=== PATIENT | female | born 1980 | race Hispanic/Latino ===

== ENCOUNTER 2024-03-31 12:32 | Emergency (ER) | payer SELFPAY ==
--- OUTSIDE RECORDS SUMMARY | 2024-03-31 12:35 | XMS REPORT | Continuity of Care Document ---
Author Name Unknown Address [address] [place] [address] Organization [facility] thconnect Address 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 Name Role Phone Teresita Abreu Primary Care Physicia n Jackie Garcia Attending Clinician [phone] Doctor Unassigned, [place] Attending Clinician U navailable Provider, [facility] Attending Clinician Un available JACKIE BERMEO Attending Clinician Unavailable SANTA KEY Attending Clinician Unavailable Lab, [facility] Attending Clinician Unavailab Emelyn Echvearria Attending Clinician [phone] EMELYN DURÁN Attending Clinician Unavailable Payers Payer Name Policy Type Policy Number Effective Date Expirati on Date Source Problems Condition Name Condition Details Condition Category Status Onset Date Resolution Date Last Treatment Date Treating Clinician Comments Source BV (bacterial vaginosis) BV (bacterial vaginosis) Disease Active 12-22 00:00: 00 [facility] UTI symptoms UTI symptoms Disease Active 06-09 00:00: 00 [facility] Contracept melva management Contracept melva management Disease Active 06-09 00:00: 00 Overview: Isatu gallegos of this note might be different from the original. 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 Utility [facility] Screening for STD (sexually transmitte d disease) Screening for STD (sexually transmitte d disease) Disease Active 10-15 00:00: 00 [facility] Allergies, Adverse Reactions, Alerts Allergy Name Allergy Type Status Severity Reaction(s) Onset Date Inactive Date Treating Clinician Comments Source NO KNOWN ALLERGIE S Drug Class Active [facility] Social History Social Habit Start Date Stop Date Quantity Comments Source [facility] of Social function 2021-01-15 00:00:00 2021-01-15 00:00:00 [facility] Exposure to SARS-CoV-2 (event) 2020-11-30 00:00:00 2020-12-30 13:50:00 Not sure [facility] Alcohol intake 2020-12-30 00:00:00 2020-12-30 00:00:00 Current non-drinker of alcohol (finding) [facility] Tobacco use and exposure 2013-08-23 00:00:00 2013-08-23 00:00:00 Smokeless tobacco non-user [facility] Sex Assigned At 1980 00:00:00 1980 00:00:00 [facility] Smoking Status Start Date Stop Date Source Never smoked tobacco [facility] Medications Ordered Medication Name Filled Medication Name Start Date Stop Date Current Medication? Ordering Clinician Indication Dosage Frequency Signature (SIG) Comments Components Source metroNIDAZO LE (FLAGYL) 500 mg tablet 01-01 00:00: 00 01-09 04:59 :00 No [id number] 500mg Take 1 tablet by mouth 2 (two) times daily for 7 days. Avoid alcohol. [facility] metroNIDAZO LE 500 mg tablet 02-07 00:00: 00 Yes [id number] 500mg Take 1 tablet by mouth 2 (two) times daily. [facility] metroNIDAZO LE 500 mg tablet 12-22 00:00: 00 Yes [id number] 500mg Take 1 tablet by mouth 2 (two) times daily. [facility] No known medications No Un stoney [facility] Immunizations Ordered Immunization Name Filled Immunization Name Date Status Comments Source SARS-COV-2 COVID-19 PFIZER VACCINE 2020-12-19 00:00:00 Completed [facility] SARS-COV-2 COVID-19 PFIZER VACCINE 2020-12-19 00:00:00 Completed [facility] SARS-COV-2 COVID-19 PFIZER VACCINE 2020-11-28 00:00:00 Completed [facility] SARS-COV-2 COVID-19 PFIZER VACCINE 2020-11-28 00:00:00 Completed [facility] Rubella 2012-02-24 00:00:00 Completed [facility] Rubella 2012-02-24 00:00:00 Completed [facility] Rubella 2012-02-24 00:00:00 Completed [facility] Td 2007-08-23 00:00:00 Completed [facility] Td 2007-08-23 00:00:00 Completed [facility] Td 2007-08-23 00:00:00 Completed [facility] Rubella Unknown Completed [facility] TD, NOS Unknown Completed [facility] SARS-COV-2 COVID-19 PFIZER VACCINE Unknown Completed [facility] SARS-COV-2 COVID-19 PFIZER VACCINE Unknown Completed [facility] Vital Signs Vital Name Observation Time Observation Value Comments S ource Systolic blood pressure 2020-12-30 18:51:00 109 mm[Hg] [facility] Diastolic blood pressure 2020-12-30 18:51:00 67 mm[Hg] [facility] Heart rate 2020-12-30 18:51:00 80 /min [facility] Body temperature 2020-12-30 18:51:00 36.89 Patricia [facility] Respiratory rate 2020-12-30 18:51:00 18 /min [facility] Body height 2020-12-30 18:51:00 157.5 cm [facility] Body weight 2020-12-30 18:51:00 67.132 kg [facility] BMI 2020-12-30 18:51:00 27.07 kg/m2 [facility] Oxygen saturation in Arterial blood by Pulse oximetry 2020-12-30 18:51:00 99 /min [facility] Procedures Procedure Date / Time Performed Performing Clinicia n Source GC & CHLAMYDIA AMPLIFIED ASSAY 2020-12-30 19:38:00 Jackie Bermeo [facility] GALV ONLY - VAGINAL PATHOGENS BY NUCLEIC ACID TESTING 2020-12-30 19:38:00 Jackie Bermeo [facility] POCT URINALYSIS 2020-12-30 19:05:00 [facility] 2020-12-30 19:05:00 Jackie Bermeo [facility] Encounters Start Date/Time End Date/Time Encounter Type Admission Type Attending [facility] Care Department Encounter ID Source 2024-01-31 08:25:19 2024-01-31 08:25:19 Outpatient SFA SFA [id number] Raymundo Arechiga 2023-11-29 08:31:25 2023-11-29 08:31:25 Outpatient SFA SFA [id number] Raymundo Arechiga 2023-10-27 16:46:04 2023-10-27 16:46:04 Outpatient SFA SFA [id number] Raymundo Arechiga 2023-09-05 14:37:42 2023-09-05 14:37:42 Outpatient SFA SFA [id number] Raymundo Arechiga 2023-07-14 08:51:51 2023-07-14 08:51:51 Outpatient SFA SFA [id number] Raymundo Arechiga 2023-07-05 13:05:56 2023-07-05 13:05:56 Outpatient SFA SFA [id number] Raymundo Arechiga 2023-06-13 08:34:51 2023-06-13 08:34:51 Outpatient SFA SFA [id number] Raymundo Arechiga 2023-03-08 08:11:56 2023-03-08 08:11:56 Outpatient SFA SFA [id number] Raymundo Arechiga 2023-02-22 14:34:14 2023-02-22 14:34:14 Outpatient SFA SFA [id number] Raymundo Arechiga 2023-02-15 08:06:46 2023-02-15 08:06:46 Outpatient [facility] [id number] Raymundo Arechiga 2023-02-01 08:21:49 2023-02-01 08:21:49 Outpatient [facility] [id number] Raymundo Arechiga 2023-01-25 14:05:16 2023-01-25 14:05:16 Outpatient [facility] [id number] Raymundo [place] 2023-01-18 08:09:26 2023-01-18 08:09:26 Outpatient [facility] [id number] Raymundo Brooks [place] 2021-01-14 00:00:00 2021-01-14 00:00:00 Telephone Jackie Bermeo [facility] Office [facility] [id number] .[id number] [facility] 2021-01-01 00:00:00 2021-01-01 00:00:00 Patient Secure Msg Doctor Unassigned, [place] [facility] [id number] [facility] 2020-12-30 13:45:07 2020-12-30 14:44:33 Urgent Care Provider, [facility] Jackie Bermeo [facility] Office [address] One .[id number] [facility] 2020-12-30 14:20:00 2020-12-30 14:20:00 Outpatient JACKIE ESPINO [facility] [id number] [facility] 2020-12-19 16:15:00 2020-12-19 15:25:21 Outpatient SATNA BAXTER [facility] [id number] [facility] 2020-11-28 16:25:00 2020-11-28 16:25:00 Outpatient R [place] [facility] [id number] [facility] 2020-03-26 07:20:00 2020-03-26 07:40:00 Laboratory Only Lab, [facility] Emelyn [facility] [id number] [facility] 2020-03-26 07:20:00 2020-03-26 07:20:00 Outpatient EMELYN POTTER [facility] [id number] [facility] Results Test Description Test Time Test Comments Results Result Co mments Source VAGINAL PATHOGENS DNA [id number] 15:17:23* Test Item Value Reference Range Interpretation Comme nts SHAUNA SPECIES (test code = 29944) NEGATIVE NEGATIVE G. VAGINALIS (test code = ) POSITIVE NEGATIVE A T. VAGINALIS (test code = ) NEGATIVE NEGATIVE Note: The BD Cambiatta irm VPIII Microbial Identification Testis a DNA probe test intended for use in the detectionand identification of Shauna species, Gardnerellavaginalis and Trichomonas vaginalis nucleic acid. UNLESS OTHERWISE INDICATED, ALL TESTING PERFORMED AT [facility] [address] [place] [address] TRAY SETTER: FAN CARUSO M.D. CLIA NUMBER [id number] [facility] [place]. [id number] GALV ONLY - VAGINAL PATHOGENS BY NUCLEIC ACID [id number] 00:05:39* Test Item Value Reference Range Interpretation Comme nts Trichomonas vaginalis (test code = 3980277999) Negative Negative Shauna species (test code = 7057682634) Negative Negative Shauna glabrata (test code = 62483-2) Negative Negative Bacterial Vaginosis (test code = 78434-7) Positive Negative A HERNÁN (test code = HERNÁN) Reliable results a re dependent on adequate specimen collection. This test detects Trichomonas vaginalis, Shauna glabrata, and other Shauna species (C. albicans, C. parapsilosis, C. dubliniensis, and C. tropicalis). ?The assay does not differentiate among organisms in the Shauna species group. The Bacterial Vaginosis result is determined based on relative amounts of the following target organisms: Lactobacillus (L. gasseri, L. crispatus, and L. jensenii), Gardnerella vaginalis, and Atopobium vaginae. ?A single qualitative result is generated. ?This assay does not report individual organisms. A positive result obtained from a patient after therapeutic treatment cannot be interpreted as indicating the presence of viable organisms. ?For patients on whom a false positive result may have adverse psychosocial impact, retesting is advised. Indeterminate: Unable to generate a valid test result on this specimen. ?Please submit a new specimen for repeat testing if clinically indicated. This testing has not been validated for medico-legal purposes (sexual abuse in niharika-pubertal and pre-pubertal children, sexual assault, and legal cases). Results from this testing should be interpreted in conjunction with other laboratory and clinical data available to the clinician. Lab Interpretation (test code = 28798-2) [facility] CHLAMYDIA AMPLIFIED [id number] 19:14:46* Test Item Value Reference Range Interpretation Comme nts C. trachomatis Nucleic Acid (test code = 15272-6) Negative Negative N. gonorrhoeae Nucleic Acid (test code = 73803-2) Negative Negative HERNÁN (test code = HERNÁN) Reliable results a re dependent on adequate specimen collection. ? A positive result obtained from a patient after therapeutic treatment cannot be interpreted as indicating the presence of viable organisms. ?For patients on whom a false positive result may have adverse psychosocial impact, retesting is advised. Indeterminate: Unable to generate a valid test result on this specimen. ?Please submit a new specimen for repeat testing if clinically indicated. Chlamydia trachomatis/Neisseria gonorrhoeae nucleic acid amplification testing (NAAT) has not been validated for medico-legal specimens (sexual abuse in niharika-pubertal and pre-pubertal children, sexual assault, and legal cases). ?Culture for Chlamydia trachomatis and/or Neisseria gonorrhoeae from clinically appropriate sites is the method of choice in these cases. ? Results from this testing should be interpreted in conjunction with other laboratory and clinical data available to the clinician. Lab Interpretation (test code = 28042-2) [facility] SPECIFIC [id number] 19:11:00* Test Item Value Reference Range Interpretation Comme nts POCT U SP GRAV (test code = 3255) 1.015 mg/dl 1.005-1.025 POCT PH U (test code = 3254) 7 mg/dl 5-8 POCT U LEUK EST (test code = 3263) Negative Negative - Negative POCT U NIT (test code = 3262) Negative Negative - Negati ve POCT U PROT (test code = 3259) Negative Negative - Negative POCT U GLU (test code = 3256) Negative Negative - Negati ve POCT U KETONE (test code = 3258) Negative Negative - Negative POCT U UROBILI (test code = 3260) Normal 0.2-1 POCT U BILI (test code = 3261) Negative Negative - Negative POCT U BLD (test code = 3257) 250 Beto/uL Negative - Negati ve POCT U COLOR (test code = 3266) yellow POCT U APPEAR (test code = 3267) clear Lab Interpretation (test cod e = 01592-3) [facility]normal [facility] [id number] 19:11:00* Test Item Value Reference Range Interpretation Comme nts POCT PREG (test code = 1605) Negative On board controls acceptable with C Line (test code = 3574) Yes POCT PREG LOT # (test code = 3575) [id number] POCT PREG TEST DATE ( test code = 3576) 06/10/2022 Lab Interpretation (test cod e = 18597-7) Normal [facility]
[2024-03-31] MEDS ORDERED: CEFTRIAXONE 500 MG/VIAL ONE (12:53)
[2024-03-31] MEDS ORDERED: DOXYCYCLINE 100 MG CAP PO ONE (12:54)
[2024-03-31] MEDS ORDERED: metroNIDAZOLE 500 MG TABLET ONE (12:54)
[2024-03-31] MEDS ORDERED: ONDANSETRON 4 MG (ODT) TAB ONE (12:54)
[2024-03-31 13:50] LABS: Specific Gravity > 1.030 (1.005-1.030)
[2024-03-31 13:57] LABS: Specific Gravity > 1.030 (1.005-1.030); Urine Bacteria <20 /HPF (<20); Urine Bilirubin NEGATIVE (Negative); Urine Blood 1+ (Negative); Urine Clarity Extremely Turbid (Clear); Urine Color Yellow (Yellow); Urine Culture Reflex Order REFLEXED; Urine Glucose NEGATIVE (Negative); Urine Ketones NEGATIVE (Negative); Urine Microscopic Reflex YN ORDER UMIC; Urine Mucus 1+ /HPF (None Seen); Urine Nitrite NEGATIVE (Negative); Urine Protein TRACE (Negative); Urine RBC 21-50 /HPF (None Seen); Urine Urobilinogen Normal (Normal); Urine pH 6.5 (5.0-7.0)
--- NOTE | 2024-03-31 14:01 | EDPHYS ---
Physician Documentation [facility] Name: Aye Shafer Age: 43 yrs Sex: Female : 1980 Arrival Date: 03/31/2024 Time: 12:32 Bed 20 Private MD: ED Physician Xiomara Sanderson HPI: 03/31 12:42 This 43 yrs old Female presents to ER via Ambulatory with complaints of Low jh7 Back Pain. 12:42 Patient reports that she had unprotected sex 1 week ago. Reports foul-smelling thick jh7 vaginal discharge for the past 2 days with lower back aching. Denies fever, dysuria, or any other symptoms. No PMH.. ESTIMATOR BINDING: 14:18 unknown kj2 Historical: - Allergies: 13:16 Aspirin; kj2 13:16 Demerol; kj2 13:16 Ibuprofen; kj2 13:16 Unable to obtain; kj2 13:16 Morphine; kj2 13:16 Codeine; kj2 13:16 Latex, Natural Rubber; kj2 13:16 Sulfa (Sulfonamide Antibiotics); kj2 13:16 Iodine; kj2 13:16 NKA; kj2 13:16 NKDA; kj2 13:16 Oxycodone; kj2 13:16 Tetanus Vaccines \T\ Toxoid; kj2 13:16 PENICILLINS; kj2 - Immunization history:: Adult Immunizations up to date. - Infectious Disease History:: Denies. - Social history:: Smoking status: Patient denies any tobacco usage or history of. - Code Status:: Full code. ROS: 12:42 Constitutional: Per HPI jh7 Exam: 12:42 Constitutional: This is a well developed, well nourished patient who is awake, alert, jh7 and in no acute distress. Head/Face: Normocephalic, atraumatic. Neck: Trachea midline, no thyromegaly or masses palpated, and no cervical lymphadenopathy. Supple, full range of motion without nuchal rigidity, or vertebral point tenderness. No Meningismus. Cardiovascular: Regular rate and rhythm with a normal S1 and S2. No gallops, murmurs, or rubs. Normal PMI, no JVD. No pulse deficits. Respiratory: Lungs have equal breath sounds bilaterally, clear to auscultation and percussion. No rales, rhonchi or wheezes noted. No increased work of breathing, no retractions or nasal flaring. Abdomen/GI: Soft, non-tender, with normal bowel sounds. No distension or tympany. No guarding or rebound. No evidence of tenderness throughout. Back: No spinal tenderness. No costovertebral tenderness. Full range of motion. Skin: Warm, dry with normal turgor. Normal color with no rashes, no lesions, and no evidence of cellulitis. MS/ Extremity: Pulses equal, no cyanosis. Neurovascular intact. Full, normal range of motion. Neuro: Awake and alert, GCS 15, oriented to person, place, time, and situation. Motor strength 5/5 in all extremities. Sensory grossly intact. Normal gait. Vital Signs: 13:08 BP 120 / 80; Pulse 81; Resp 18; Pulse Ox 100% ; kj2 14:18 BP 102 / 61; Pulse 79; Resp 20; Temp 98; Pulse Ox 99% on R/A; kj2 MDM: 12:38 Patient medically screened. [facility] 14:03 Differential diagnosis: Bacterial vaginosis, vaginal yeast infection, PID, STI, UTI. [facility] Data reviewed: vital signs, nurses notes. I considered the following discharge prescriptions or medication management in the emergency department Medications were administered in the Emergency Department. See MAR. Care significantly affected by the following Social Determinants of Health: Poor access to healthcare and/or lack of insurance. Counseling: I had a detailed discussion with the patient and/or guardian regarding the historical points, exam findings, and any diagnostic results supporting the discharge/admit diagnosis, to return to the emergency department if symptoms worsen or persist or if there are any questions or concerns that arise at home. 03/31 12:47 Order name: Urinalysis w/ reflexes; Complete Time: 13:59 [facility] 03/31 12:47 Order name: Test, Urine; Complete Time: 13:53 [facility] 03/31 14:01 Order name: Urine Culture EDMS Administered Medications: 13:07 Drug: Rocephin (cefTRIAXone) IM 500 mg IM once Route: IM; Site: right gluteus; kj2 14:22 Follow up: Response: No adverse reaction kj2 13:07 Drug: Doxycycline PO 100 mg PO once Route: PO; kj2 14:22 Follow up: Response: No adverse reaction kj2 13:07 Drug: Ondansetron Oral Disintegrating Tablet Oral Disintegrating Tablet 4 mg PO once kj2 Route: PO; 14:22 Follow up: Response: No adverse reaction kj2 13:07 Drug: metroNIDAZOLE PO 500 mg PO once Route: PO; kj2 14:22 Follow up: Response: No adverse reaction kj2 Disposition: 19:28 I reviewed the patient's care provided by the Advanced Practice Provider and agree with sd2 the diagnosis and treatment plan. Disposition Summary: 03/31/24 14:01 Discharge Ordered Notes: Location: Home [facility] Problem: new [facility] Symptoms: are unchanged [facility] Condition: Stable [facility] Diagnosis - Vaginitis, vulvitis and vulvovaginitis in diseases classified elsewhere [facility] - Encounter for screening for infections with a predominantly sexual mode of [facility] transmission Followup: [facility] - With: Private Physician - When: 2 - 3 days - Reason: Recheck today's complaints Discharge Instructions: - Discharge Summary Sheet [facility] - Bacterial Vaginosis [facility] - Preventing Sexually Transmitted Infections, Adult [facility] Forms: - Medication Reconciliation Form [facility] - Antibiotic Education [facility] - Patient Portal Instructions [facility] - Leadership Thank You Letter [facility] Prescriptions: - ondansetron 4 mg Oral Tablet,disintegrating - take 1 tablet ORAL route every 4-6 hours As needed; 20 tablet; Refills: 0, [facility] Product Selection Permitted - Diflucan 150 mg Oral Tablet - take 1 tablet ORAL route one time for 1 day; 1 tablet; Refills: 0, Product [facility] Selection Permitted - Flagyl 500 mg Oral Tablet - take 1 tablet ORAL route every 12 hours for 7 days; 14 tablet; Refills: 0, [facility] Product Selection Permitted - Doxycycline Hyclate 100 mg Oral Tablet - take 1 tablet ORAL route every 12 hours; 20 tablet; Refills: 0, Product [facility] Selection Permitted Signatures: Dispatcher [employer] Lyssa Ramirez RN RN ll1 Daysi Gonzalez, ASSEMBLY PERSON ASSEMBLY PERSON 7 Xiomara Sanderson MD MD sd2 Karla Mai RN RN kj2 Corrections: (The following items were deleted from the chart) 13:20 13:16 Allergies: No Known Allergies; kj2 kj2
--- NOTE | 2024-03-31 14:01 | ER ---
Nurse's Notes [facility] Name: Aye Shafer Age: 43 yrs Sex: Female : 1980 Arrival Date: 03/31/2024 Time: 12:32 Bed 20 Private MD: Diagnosis: Vaginitis, vulvitis and vulvovaginitis in diseases classified elsewhere;Encounter for screening for infections with a predominantly sexual mode of transmission Presentation: 03/31 12:42 Chief complaint: Patient states: Foul smelling vaginal discharge for a couple days. + ll1 low back pain now. Coronavirus screen: Client denies travel out of the [place] in the last 14 days. At this time, the client does not indicate any symptoms associated with coronavirus-19. Ebola Screen: Patient denies travel to an Ebola-affected area in the 21 days before illness onset. Initial Sepsis Screen: Does the patient meet any 2 criteria? No. Patient's initial sepsis screen is negative. Does the patient have a suspected source of infection? No. Patient's initial sepsis screen is negative. Risk Assessment: Do you want to hurt yourself or someone else? Patient reports no desire to harm self or others. Onset of symptoms was March 29, 2024. 12:42 Method Of Arrival: Ambulatory ll1 12:42 Acuity: VIRGEN 3 ll1 Triage Assessment: 12:44 General: Appears uncomfortable, Behavior is calm, cooperative, appropriate for age. ll1 Pain: Complains of pain in back Quality of pain is described as aching. : Reports discharge, malodorous, brownish vaginal discharge. Musculoskeletal: Reports pain in low back. DERMATOLOGY PHYSICIAN ASSISTANT: 14:18 unknown kj2 Historical: - Allergies: 13:16 Aspirin; kj2 13:16 Demerol; kj2 13:16 Ibuprofen; kj2 13:16 Unable to obtain; kj2 13:16 Morphine; kj2 13:16 Codeine; kj2 13:16 Latex, Natural Rubber; kj2 13:16 Sulfa (Sulfonamide Antibiotics); kj2 13:16 Iodine; kj2 13:16 NKA; kj2 13:16 NKDA; kj2 13:16 Oxycodone; kj2 13:16 Tetanus Vaccines \T\ Toxoid; kj2 13:16 PENICILLINS; kj2 - Immunization history:: Adult Immunizations up to date. - Infectious Disease History:: Denies. - Social history:: Smoking status: Patient denies any tobacco usage or history of. - Code Status:: Full code. Screenin:15 [facility] ED Fall Risk Assessment (Adult) History of falling in the last 3 months, kj2 including since admission No falls in past 3 months (0 pts) Confusion or Disorientation No (0 pts) Intoxicated or Sedated No (0 pts) Impaired Gait No (0 pts) Mobility Assist Device Used No (0 pt) Altered Elimination No (0 pt) Score/Fall Risk Level 0 - 2 = Low Risk Maintained a safe environment, Educated pt \T\ family on fall prevention, incl call for assistance when getting out of bed, Hourly rounding (assess needs \T\ fall precautionary measures) done. Abuse screen: Denies threats or abuse. Denies injuries from another. Nutritional screening: No deficits noted. Tuberculosis screening: No symptoms or risk factors identified. Assessment: 13:12 General: Appears uncomfortable, Behavior is calm, cooperative. Pain: Complains of pain kj2 in lower back Pain currently is 7 out of 10 on a pain scale. Neuro: Level of Consciousness is awake, alert, Oriented to person, place, time, situation. Cardiovascular: Capillary refill < 3 seconds Patient's skin is warm and dry. Respiratory: Airway is patent. GI: No deficits noted. : No deficits noted. 13:46 Reassessment: Patient and/or family updated on plan of care and expected duration. Pain kj2 level reassessed. Patient states feeling better. Vital Signs: 13:08 BP 120 / 80; Pulse 81; Resp 18; Pulse Ox 100% ; kj2 14:18 BP 102 / 61; Pulse 79; Resp 20; Temp 98; Pulse Ox 99% on R/A; kj2 ED Course: 12:37 Patient arrived in ED. mg5 12:38 [facility] jh7 12:38 Xiomara Sanderson MD is Attending Physician. jh7 12:39 Arm band placed on Patient placed in an exam room, on a stretcher. ll1 12:43 Triage completed. ll1 12:49 Karla Mai, CASPER is Primary Nurse. kj2 13:16 Patient has correct armband on for positive identification. Bed in low position. Call kj2 light in reach. Provided Education on: call light, fall precautions. 14:19 Patient did not have IV access during this emergency room visit. kj2 14:19 No provider procedures requiring assistance completed. kj2 Administered Medications: 13:07 Drug: Rocephin (cefTRIAXone) IM 500 mg IM once Route: IM; Site: right gluteus; kj2 14:22 Follow up: Response: No adverse reaction kj2 13:07 Drug: Doxycycline PO 100 mg PO once Route: PO; kj2 14:22 Follow up: Response: No adverse reaction kj2 13:07 Drug: Ondansetron Oral Disintegrating Tablet Oral Disintegrating Tablet 4 mg PO once kj2 Route: PO; 14:22 Follow up: Response: No adverse reaction kj2 13:07 Drug: metroNIDAZOLE PO 500 mg PO once Route: PO; kj2 14:22 Follow up: Response: No adverse reaction kj2 Medication: 13:20 VIS not applicable for this client. kj2 Outcome: 14:01 Discharge ordered by . jh7 14:19 Discharged to home ambulatory, kj2 14:19 Condition: stable 14:19 Discharge instructions given to Instructed on Demonstrated understanding of instructions, follow-up care, medications, Prescriptions given X 4, 14:23 Patient left the ED. kj2 Addendum: 04/04/2024 10:57 Addendum: Culture Results: Positive urine culture. Bacteria is resistant to, has a a5 intermediate sensitivity, or is not tested against prescribed antibiotics. Report given to DAY for further evaluation and then to business solutions consultant for follow up with patient. Phone call Attempt #1 left voice mail. 18:30 Addendum: Culture Results: Phone call Attempt #2 Received call back from patient, kobe umanzor instructed if symptoms have not improved to come back to ER for IV antibiotics, pt verbalized understanding. Pt stated that she is unable to come in for IV antibiotics, pt was encouraged to follow-up with PCP and to take Urine culture results to PCP for review, pt verbalized understanding. Signatures: Beena Dolan, RN RN aa5 Lyssa Monique RN RN ll1 Daysi Gonzalez FNP GUARD CAPTAIN 7 Dena Dill 5 Karla Mai RN RN kj2 Corrections: (The following items were deleted from the chart) 03/31 13:20 13:16 Allergies: No Known Allergies; kj2 kj2
[2024-04-04 14:37] VITALS: BP 102/61; TEMP 98; O2SAT 99
== END 2024-03-31 14:23 | disposition home or self-care (01) ==
LOC: ER 12:32
DX: N76.0 Acute vaginitis (principal); N77.1 Vaginitis, vulvitis and vulvovaginitis in diseases classified elsewhere; Z11.3 Encounter for screening for infections with a predominantly sexual mode of transmission; Z88.0 Allergy status to penicillin; Z88.2 Allergy status to sulfonamides; Z88.5 Allergy status to narcotic agent; Z88.7 Allergy status to serum and vaccine; Z88.8 Allergy status to other drugs, medicaments and biological substances; Z91.040 Latex allergy status
CPT/HCPCS: 81001; 81025; 87077; 87086; 87088; 87186; 96372; 99284; Q0162

== ENCOUNTER 2024-04-05 17:35 | Inpatient (IN) | payer SELFPAY ==
--- OUTSIDE RECORDS SUMMARY | 2024-04-05 17:47 | XMS REPORT | Continuity of Care Document ---
Author Name Unknown Address [address] [facility] [address] [place] [address] Organization [facility] thconnect Address [address] [place] [address] Care Team Providers Care Property Man Name Role Phone Mer Robles Primary Care Physician Jackie Garcia Attending Clinician [phone] Doctor Unassigned, [place] Attending Clinician U navailable Provider, [facility] Attending Clinician Un available JACKIE SOTELO Attending Clinician Unavailable SANTA KEY Attending Clinician Unavailable Lab, Adc Fam Pob I Attending Clinician Unavailab Emelyn Echevarria Attending Clinician [phone] EMELYN MASSEY Attending Clinician Unavailable Payers Payer Name Policy Type Policy Number Effective Date Expirati on Date Source Problems Condition Name Condition Details Condition Category Status Onset Date Resolution Date Last Treatment Date Treating Clinician Comments Source BV (bacterial vaginosis) BV (bacterial vaginosis) Disease Active 12-22 00:00: 00 [facility] UTI symptoms UTI symptoms Disease Active 06-09 00:00: 00 [facility] Contracept melva management Contracept melva management Disease Active 06-09 00:00: 00 Overview: Formattin g of this note might be different from the original. ICD10 Diagnosis Term [employer] Wa[employer] Utility [facility] Overweight Overweight Disease Active 2 00:00: 00 Overview: Formattin g of this note might be different from the original. ICD10 Diagnosis Term [employer] Wa[employer] Utility [facility] Screening for STD (sexually transmitte d disease) Screening for STD (sexually transmitte d disease) Disease Active 10-15 00:00: 00 [facility] Allergies, Adverse Reactions, Alerts Allergy Name Allergy Type Status Severity Reaction(s) Onset Date Inactive Date Treating Clinician Comments Source NO KNOWN ALLERGIE S Drug Class Active [facility] Social History Social Habit Start Date Stop Date Quantity Comments Source [facility] of Social function 2021-01-15 00:00:00 2021-01-15 00:00:00 [facility] Exposure to SARS-CoV-2 (event) 2020-11-30 00:00:00 2020-12-30 13:50:00 Not sure [facility] Alcohol intake 2020-12-30 00:00:00 2020-12-30 00:00:00 Current non-drinker of alcohol (finding) [facility] Tobacco use and exposure 2013-08-23 00:00:00 2013-08-23 00:00:00 Smokeless tobacco non-user [facility] Sex Assigned At 1980 00:00:00 1980 00:00:00 [facility] Smoking Status Start Date Stop Date Source Never smoked tobacco [facility] Medications Ordered Medication Name Filled Medication Name Start Date Stop Date Current Medication? Ordering Clinician Indication Dosage Frequency Signature (SIG) Comments Components Source TAKE 1 TABLET NOW AND REPEAT IN 3 DAYS 11-01 00:00: 00 01-02 00:00 :00 No 150 Raymundo Arechiga INSERT 1 APPLICATORF UL INTRAVAGINA LLY TWICE WEEKLY AT BEDTIME FOR 4 MONTHS 10-27 00:00: 00 Yes 75 Raymundo Arechiga TAKE 1 TABLET TWICE DAILY UNTIL FINISHED. 10-27 00:00: 00 01-02 00:00 :00 No 500 Raymundo Arechiga TAKE 1 CAPSULE EVERY 6 HOURS UNTIL GONE. 10-27 00:00: 00 01-02 00:00 :00 No 500 Raymundo Arechiga TAKE 1 CAPSULE EVERY 6 HOURS UNTIL GONE. 2023-1 2-29 00:00: 00 01-02 00:00 :00 No 500 Raymundo Arechiga TAKE 1 CAPSULE TWICE DAILY UNTIL GONE. 2022-09 1-03 00:00: 00 01-02 00:00 :00 No 300 Raymundo Arechiga TAKE 1 TABLET TWICE DAILY UNTIL FINISHED. 2022-09 0-05 00:00: 00 01-02 00:00 :00 No 500 Raymundo Arechiga TAKE 1 TABLET TWICE DAILY WITH FOOD. 2022-09 0-03 00:00: 00 01-02 00:00 :00 No [id number] Raymundo Arechiga TAKE 1 TABLET TWICE DAILY UNTIL FINISHED. 6-15 00:00: 00 01-02 00:00 :00 No 500 Raymundo Arechiga TAKE 1 CAPSULE TWICE DAILY UNTIL GONE. 5-12 00:00: 00 01-02 00:00 :00 No 100 Raymundo Arechiga TAKE 1 TABLET TWICE DAILY UNTIL FINISHED. 5-10 00:00: 00 01-02 00:00 :00 No 500 Raymundo Arechiga metroNIDAZO LE (FLAGYL) 500 mg tablet 01-01 00:00: 00 01-09 04:59 :00 No [id number] 500mg Take 1 tablet by mouth 2 (two) times daily for 7 days. Avoid alcohol. [facility] metroNIDAZO LE 500 mg tablet -30 00:00: 00 Yes [id number] 500mg Take 1 tablet by mouth 2 (two) times daily. [facility] metroNIDAZO LE 500 mg tablet -13 00:00: 00 Yes [id number] 500mg Take 1 tablet by mouth 2 (two) times daily. [facility] No known medications No Un stoney [facility] Immunizations Ordered Immunization Name Filled Immunization Name Date Status Comments Source HPV9 HPV9 2023-07-05 00:00:00 Completed Raymundo Arechiga HPV9 HPV9 2023-02-22 00:00:00 Completed Raymundo Brooks Hawk SARS-COV-2 COVID-19 PFIZER VACCINE 2020-12-19 00:00:00 Completed [facility] SARS-COV-2 COVID-19 PFIZER VACCINE 2020-12-19 00:00:00 Completed [facility] Pfizer COVID-19 Vaccine Pfizer COVID-19 Vaccine 2020-12-19 00:00:00 Completed Raymundo Arechiga SARS-COV-2 COVID-19 PFIZER VACCINE 2020-11-28 00:00:00 Completed [facility] SARS-COV-2 COVID-19 PFIZER VACCINE 2020-11-28 00:00:00 Completed [facility] Pfizer COVID-19 Vaccine Pfizer COVID-19 Vaccine 2020-11-28 00:00:00 Completed Raymundo Arechiga Rubella 2012-02-24 00:00:00 Completed [facility] Rubella 2012-02-24 00:00:00 Completed [facility] Rubella 2012-02-24 00:00:00 Completed [facility] Td 2007-08-23 00:00:00 Completed [facility] Td 2007-08-23 00:00:00 Completed [facility] Td 2007-08-23 00:00:00 Completed [facility] Rubella Unknown Completed [facility] TD, NOS Unknown Completed [facility] SARS-COV-2 COVID-19 PFIZER VACCINE Unknown Completed [facility] SARS-COV-2 COVID-19 PFIZER VACCINE Unknown Completed [facility] Vital Signs Vital Name Observation Time Observation Value Comments S ource Systolic blood pressure 2020-12-30 18:51:00 109 mm[Hg] [facility] Diastolic blood pressure 2020-12-30 18:51:00 67 mm[Hg] [facility] Heart rate 2020-12-30 18:51:00 80 /min [facility] Body temperature 2020-12-30 18:51:00 36.89 Patricia [facility] Respiratory rate 2020-12-30 18:51:00 18 /min [facility] Body height 2020-12-30 18:51:00 157.5 cm [facility] Body weight 2020-12-30 18:51:00 67.132 kg [facility] BMI 2020-12-30 18:51:00 27.07 kg/m2 [facility] Oxygen saturation in Arterial blood by Pulse oximetry 2020-12-30 18:51:00 99 /min [facility] BP Systolic 2024-04-03 10:25:00 108 mm[Hg] Step hen F Hawk BP Diastolic 2024-04-03 10:25:00 74 mm[Hg] N[address]stor phen F Hawk Weight Measured 2024-04-03 10:25:00 166.40 pounds Raymundo F Hawk Height Measured 2024-04-03 10:25:00 65.00 inches Raymundo F Hawk Body Temperature 2024-04-03 10:25:00 98.20 degrees Raymundo F Hawk Heart Rate 2024-04-03 10:25:00 78.00 /min Vidhi en F Hawk Respiratory Rate 2024-04-03 10:25:00 18.00 /min Raymundo F Hawk BP Systolic 2023-11-29 08:37:00 117 mm[Hg] Step hen F Hawk BP Diastolic 2023-11-29 08:37:00 56 mm[Hg] Néstor phen F Hawk Weight Measured 2023-11-29 08:37:00 163.20 pounds Raymundo F Hawk Height Measured 2023-11-29 08:37:00 65.00 inches Raymundo F Hawk Body Temperature 2023-11-29 08:37:00 Raymundo F Hawk Heart Rate 2023-11-29 08:37:00 75.00 /min Vidhi en F Hawk Respiratory Rate 2023-11-29 08:37:00 Raymundo F Hawk BP Systolic 2023-10-27 16:46:00 Step hen F Hawk BP Diastolic 2023-10-27 16:46:00 N[address]stor phen F Hawk Weight Measured 2023-10-27 16:46:00 168.80 pounds Raymundo F Hakw Height Measured 2023-10-27 16:46:00 65.00 inches Raymundo F Hawk Body Temperature 2023-10-27 16:46:00 98.20 degrees Raymundo F Hawk Heart Rate 2023-10-27 16:46:00 81.00 /min Vidhi en F Hawk Respiratory Rate 2023-10-27 16:46:00 18.00 /min Raymundo F Hawk BP Systolic 2023-09-05 14:44:00 119 mm[Hg] Step hen F Hawk BP Diastolic 2023-09-05 14:44:00 89 mm[Hg] Néstor phen F Hawk Weight Measured 2023-09-05 14:44:00 165.80 pounds Raymundo F Hawk Height Measured 2023-09-05 14:44:00 65.00 inches Raymundo F Hawk Body Temperature 2023-09-05 14:44:00 99.50 degrees Raymundo F Hawk Heart Rate 2023-09-05 14:44:00 76.00 /min Vidhi en F Hawk Respiratory Rate 2023-09-05 14:44:00 Raymundo F Hawk BP Systolic 2023-07-14 09:04:00 128 mm[Hg] Step hen F Hawk BP Diastolic 2023-07-14 09:04:00 65 mm[Hg] Néstor phen F Hawk Weight Measured 2023-07-14 09:04:00 163.40 pounds Raymundo F Hawk Height Measured 2023-07-14 09:04:00 65.00 inches Raymundo F Hawk Body Temperature 2023-07-14 09:04:00 98.20 degrees Raymundo F Hawk Heart Rate 2023-07-14 09:04:00 74.00 /min Vidhi en F Hawk Respiratory Rate 2023-07-14 09:04:00 18.00 /min Raymundo F Hawk BP Systolic 2023-07-05 13:23:00 113 mm[Hg] Step hen F Hawk BP Diastolic 2023-07-05 13:23:00 62 mm[Hg] Néstor phen F Hawk Weight Measured 2023-07-05 13:23:00 164.40 pounds Raymundo F Hawk Height Measured 2023-07-05 13:23:00 65.00 inches Raymundo F Hawk Body Temperature 2023-07-05 13:23:00 98.30 degrees Raymundo F Hawk Heart Rate 2023-07-05 13:23:00 67.00 /min Vidhi en F Hawk Respiratory Rate 2023-07-05 13:23:00 Raymundo F Hawk BP Systolic 2023-06-13 08:35:00 126 mm[Hg] Step hen F Hawk BP Diastolic 2023-06-13 08:35:00 50 mm[Hg] Néstor phen F Hawk Weight Measured 2023-06-13 08:35:00 169.40 pounds Raymundo F Hawk Height Measured 2023-06-13 08:35:00 65.00 inches Raymundo F Hawk Body Temperature 2023-06-13 08:35:00 98.30 degrees Raymundo F Hawk Heart Rate 2023-06-13 08:35:00 71.00 /min Vidhi en F Hawk Respiratory Rate 2023-06-13 08:35:00 Raymundo F Hawk BP Systolic 2023-03-08 08:14:00 113 mm[Hg] Step hen F Hawk BP Diastolic 2023-03-08 08:14:00 57 mm[Hg] Néstor phen F Hawk Weight Measured 2023-03-08 08:14:00 167.00 pounds Raymundo F Hawk Height Measured 2023-03-08 08:14:00 65.00 inches Raymundo F Hawk Body Temperature 2023-03-08 08:14:00 97.90 degrees Raymundo F Hawk Heart Rate 2023-03-08 08:14:00 64.00 /min Vidhi en F Hawk Respiratory Rate 2023-03-08 08:14:00 18.00 /min Raymundo F Hawk BP Systolic 2023-02-22 14:48:00 122 mm[Hg] Step hen F Hawk BP Diastolic 2023-02-22 14:48:00 77 mm[Hg] Néstor phen F Hawk Weight Measured 2023-02-22 14:48:00 167.40 pounds Raymundo F Hawk Height Measured 2023-02-22 14:48:00 65.00 inches Raymundo F Hawk Body Temperature 2023-02-22 14:48:00 98.60 degrees Raymundo F Hawk Heart Rate 2023-02-22 14:48:00 74.00 /min Vidhi en F Hawk Respiratory Rate 2023-02-22 14:48:00 Raymundo F Hawk BP Systolic 2023-02-15 08:18:00 113 mm[Hg] Step hen F Hawk BP Diastolic 2023-02-15 08:18:00 60 mm[Hg] Néstor phen F Hawk Weight Measured 2023-02-15 08:18:00 167.40 pounds Raymundo F Hawk Height Measured 2023-02-15 08:18:00 65.00 inches Raymundo F Hawk Body Temperature 2023-02-15 08:18:00 98.10 degrees Raymundo F Hawk Heart Rate 2023-02-15 08:18:00 63.00 /min Vidhi Arechiga Respiratory Rate 2023-02-15 08:18:00 Raymundo Arechiga Procedures Procedure Date / Time Performed Performing Clinicia n Source [id number] Colposcopy Cervix Bx Cervix endocrv Curtg 2023-02-22 00:00:00 Raymundo Arechiga GC & CHLAMYDIA AMPLIFIED ASSAY 2020-12-30 19:38:00 Jackie Sotelo [facility] GALV ONLY - VAGINAL PATHOGENS BY NUCLEIC ACID TESTING 2020-12-30 19:38:00 Jackie Sotelo [facility] POCT URINALYSIS 2020-12-30 19:05:00 Jackie Sotelo U [facility] POCT TEST 2020-12-30 19:05:00 Jackie Sotelo [facility] Encounters Start Date/Time End Date/Time Encounter Type Admission Type Attending [facility] Care Department Encounter ID Source 2024-04-05 13:15:00 2024-04-05 13:15:[address] [facility] [id number] Raymundo Arechiga 2024-04-03 10:11:10 2024-04-03 10:11:[address] [facility] [id number] Raymundo Arechiga 2024-04-03 00:00:00 2024-04-03 00:00:00 Outpatient Visit SFA [id number] Raymundo Arechiga 2024-01-31 08:25:19 2024-01-31 08:25:19 Outpatient SFA [facility] [id number] Raymundo Arechiga 2023-11-29 08:31:25 2023-11-29 08:31:25 Outpatient SFA [facility] [id number] Raymundo Arechiga 2023-10-27 16:46:04 2023-10-27 16:46:04 Outpatient SFA SFA [id number] Raymundo Arechiga 2023-09-05 14:37:42 2023-09-05 14:37:42 Outpatient SFA [facility] [id number] Raymundo Arechiga 2023-07-14 08:51:51 2023-07-14 08:51:[address] [facility] [id number] Raymundo Arechiga 2023-07-05 13:05:56 2023-07-05 13:05:56 Outpatient SFA [facility] [id number] Raymundo Arechiga 2023-06-13 08:34:51 2023-06-13 08:34:51 Outpatient SFA [facility] [id number] Raymundo Arechiga 2023-03-08 08:11:56 2023-03-08 08:11:56 Outpatient SFA SFA [id number] Raymundo Arechiga 2023-02-22 14:34:14 2023-02-22 14:34:[address] [facility] [id number] Raymundo Arechiga 2023-02-15 08:06:46 2023-02-15 08:06:[address] [facility] [id number] Raymundo Arechiga 2023-02-01 08:21:49 2023-02-01 08:21:[address] [facility] [id number] Raymundo Arechiga 2023-01-25 14:05:16 2023-01-25 14:05:[address] [facility] [id number] Raymundo Arechiga 2023-01-18 08:09:26 2023-01-18 08:09:[address] [facility] [id number] Raymundo Arechiga 2021-01-14 00:00:00 2021-01-14 00:00:00 Telephone Jackie Sotelo [facility] [id number] [facility] 2021-01-01 00:00:00 2021-01-01 00:00:00 Patient Secure Msg Doctor Unassigned, [place] [facility] [id number]..840.114 [id number] [facility] 2020-12-30 13:45:07 2020-12-30 14:44:33 Urgent Care Provider, [facility] [id number]..840.114 [id number] [facility] 2020-12-30 14:20:00 2020-12-30 14:20:00 Outpatient [facility] [id number] [facility] 2020-12-19 16:15:00 2020-12-19 15:25:21 Outpatient [facility] [id number] [facility] 2020-11-28 16:25:00 2020-11-28 16:25:00 Outpatient [facility] [id number] [facility] 2020-03-26 07:20:00 2020-03-26 07:40:00 Laboratory Only Lab, Adc Fam Pob I Yohannes Massey[facility] 1..840.114 [id number] [facility] 2020-03-26 07:20:00 2020-03-26 07:20:00 [facility] [id number] Results Test Description Test Time Test Comments Results Result Co mments Source Raymundo ArechigaLIPID [id number] 00:00:00* Test Item Value Reference Range Interpretation Comme nts CHOLESTEROL (test code = 2210) 195 MG/DL TRIGLYCERIDES (test code = 2232) 133 MG/DL HDL CHOLESTEROL (test code = 2220) 36 MG/DL CALC LDL CHOL (test code = 2237) 134 MG/DL RISK RATIO LDL/HDL (test cod e = 2238) 3.72 RATIO Raymundo ArechigaHEMOGLOBIN [id number] 00:00:00* Test Item Value Reference Range Interpretation Comme nts HEMOGLOBIN A1c (test code = 40079) 5.7 % Raymundo F AustinCULTURE, [id number] 00:00:00* Test Item Value Reference Range Interpretation Comme nts CULTURE, URINE (test code = 95446) SPECIMEN NUMBER: [id number] Raymundo Brooks AustinVAGINAL PATHOGENS DNA [id number] 00:00:00* Test Item Value Reference Range Interpretation Comme nts SHAUNA SPECIES (test code = 59117) POSITIVE G. VAGINALIS (test code = 18999) NEGATIVE T. VAGINALIS (test code = 32916) NEGATIVE Raymundo ArechigaCULTURE, [id number] 00:00:00* Test Item Value Reference Range Interpretation Comme nts CULTURE, URINE (test code = 08353) SPECIMEN NUMBER: [id number] Raymundo Brooks AustinCT/NG, TMA, [id number] 00:00:00* Test Item Value Reference Range Interpretation Comme nts CHLAMYDIA, NAAT, URINE (test code = 60539) NEGATIVE GONORRHEA, NAAT, URINE (test code = 95917) NEGATIVE Raymundo ArechigaVAGINAL PATHOGENS DNA [id number] 00:00:00* Test Item Value Reference Range Interpretation Comme nts SHAUNA SPECIES (test code = 27528) NEGATIVE G. VAGINALIS (test code = 18785) NEGATIVE T. VAGINALIS (test code = 17078) NEGATIVE Raymundo ArechigaCULTURE, [id number] 00:00:00* Test Item Value Reference Range Interpretation Comme nts CULTURE, URINE (test code = 04733) SPECIMEN NUMBER: [id number] Raymundo Brooks AustinVAGINAL PATHOGENS DNA [id number] 00:00:00* Test Item Value Reference Range Interpretation Comme nts SHAUNA SPECIES (test code = 01661) NEGATIVE G. VAGINALIS (test code = 06367) POSITIVE T. VAGINALIS (test code = 62783) NEGATIVE Raymundo Brooks AustinCULTURE, [id number] 00:00:00* Test Item Value Reference Range Interpretation Comme nts CULTURE, URINE (test code = 29242) SPECIMEN NUMBER: [id number] Raymundo Brooks AustinVAGINAL PATHOGENS DNA [id number] 00:00:00* Test Item Value Reference Range Interpretation Comme nts SHAUNA SPECIES (test code = 30848) NEGATIVE G. VAGINALIS (test code = 26351) POSITIVE T. VAGINALIS (test code = 07220) NEGATIVE [facility]undo [facility] [id number] 14:39:11* Test Item Value Reference Range Interpretation Comme nts DIAGNOSIS: (test code = 8200) (NOTE) A) Biopsy - Cerv ix 12:00Cervical transformation zone with acute and chronic inflammation,squamous metaplasia and reactive epithelial changes. B) Biopsy - Cervix 5:00Atypical metaplastic epithelium s ee microscopic description partB. C) Biopsy - Cervix 7:00Cervical transformation zone with acute and chronic inflammation,squamous metaplasia and reactive epithelial changes. D) Curettage - EndocervixBenign endocervical tissue. COMMENTS: (test code = 8205) (NOTE) The previously r eported abnormal Pap (accession #[id number]) isreviewed. The atypical cells identified on the Pap slideessentially correlate with the biopsy findings. MICROSCOPIC DESCRIPTION: (test code = 8210) (NOTE) A) The biopsy co nsists of benign cervical transformation zonemucosa with acute and chronic inflammation, squamous metaplasiaand reactive epithelial changes. No dysplasia or malignancy ispresent. B) The biopsy consists of benign cervical transformation zonemucosa with acute and chronic inflammation, squamous metaplasiaand reactive epithelial changes. Focally there is a thin layer ofmildly atypical metaplastic epithelium with small crowdedhyperchromatic nuclei and a lack of clear maturation. A o80rrhjy is performed on block B1 with an appropriately functioningcontrol. Most of the atypical epithelium is negative. There martine small focus of moderate block positive staining involving lynne thin, inflamed area of epithelium. The histologic featuresare not diagnostic of high-grade squamous intraepithelial lesion. However, close clinical follow-up may be warranted. C) The biopsy consists of benign cervical transformation zonemucosa with acute and chronic inflammation, squamous metaplasiaand reactive epithelial changes. No dysplasia or malignancy ispresent. D) The sample contains benign endocervical glandular epithelium.No atypia is present. CLINICAL DATA: (test code = 8401) (NOTE) Not specified GROSS DESCRIPTION: (test code = 8220) (NOTE) A) SPECIMEN L ABELED: Cervix 12:00SIZE/WEIGHT: 0.3x0.3x0.3 cm SPECIMEN COLOR: TanNUMBER OF TISSUE PIECES: 1SUBMITTED IN CASSETTE(S): [id number]: FormalinCOMMENTS:Entirely submitted intact. B) SPECIMEN LABELED: Cervix 5:00SIZE/WEIGHT: 0.3x0.3x0.3 cm SPECIMEN COLOR: TanNUMBER OF TISSUE PIECES: 1SUBMITTED IN CASSETTE(S): [id number]: FormalinCOMMENTS:Entirely submitted intact. C) SPECIMEN LABELED: Cervix 7:00SIZE/WEIGHT: 0.4x0.3x0.2 cm SPECIMEN COLOR: TanNUMBER OF TISSUE PIECES: 1SUBMITTED IN CASSETTE(S): [id number]: FormalinCOMMENTS:Entirely submitted intact. D) SPECIMEN LABELED: EndocervixSIZE/WEIGHT: 1.4x1.1x0.4 cm AggregateSPECIMEN COLOR: Cervantes-redNUMBER OF TISSUE PIECES: multipleSUBMITTED IN CASSETTE(S): [id number]: FormalinCOMMENTS:Mostly mucus and clotted blood. Filtered and entirely submitted. PATHOLOGIST: (test code = 8250) (NOTE) Olive Davidson M.D. Specimens processed and interpreted at [facility], [address] [place] [address], , CLIA: [id number] DISCLAIMER (test code = 58951) (NOTE) IHC antibodies a re interpreted in the presence of appropriatelyfunctioning controls unless otherwise noted. CPT: (test code = 8400) (NOTE) 70217, [id number] U NLESS OTHERWISE INDICATED, ALL TESTING PERFORMED AT [facility] [address] [place] [address] SENIOR SCRUM MASTER: FAN CARUSO M.D. CLIA NUMBER [id number] [facility]. [id number] SURGICAL PATHOLOGY [id number] 00:00:00* Test Item Value Reference Range Interpretation Comme nts DIAGNOSIS: (test code = 8200) (NOTE) COMMENTS: (test code = 8205) (NOTE) MICROSCOPIC DESCRIPTION: (te st code = 8210) (NOTE) CLINICAL DATA: (test code = 8401) (NOTE) GROSS DESCRIPTION: (test code = 8220) (NOTE) PATHOLOGIST: (test code = 8250) (NOTE) DISCLAIMER (test code = 99824) (NOTE) CPT: (test code = 8400) (NOTE) PDFE (test code = PDFReport) PDF Raymundo Brooks AustinVAGINAL PATHOGENS DNA [id number] 15:17:23* Test Item Value Reference Range Interpretation Comme nts SHAUNA SPECIES (test code = ) NEGATIVE NEGATIVE G. VAGINALIS (test code = 87192) POSITIVE NEGATIVE A T. VAGINALIS (test code = 86579) NEGATIVE NEGATIVE Note: The BD [facility] VPIII Microbial Identification Testis a DNA probe test intended for use in the detectionand identification of Shauna species, Gardnerellavaginalis and Trichomonas vaginalis nucleic acid. UNLESS OTHERWISE INDICATED, ALL TESTING PERFORMED AT [facility] [address] [place] [address] SENIOR SCRUM MASTER: FAN CARUSO M.D. CLIA NUMBER [id number] [facility]. [id number] VAGINAL PATHOGENS DNA [id number] 00:00:00* Test Item Value Reference Range Interpretation Comme nts SHAUNA SPECIES (test code = ) NEGATIVE G. VAGINALIS (test code = 92156) POSITIVE T. VAGINALIS (test code = 33353) NEGATIVE Raymundo ArechigaCOMPREHENSIVE METABOLIC [id number] 00:00:00* Test Item Value Reference Range Interpretation Comme nts GLUCOSE (test code = 2217) 110 MG/DL BUN (test code = 2208) 10 MG/DL CREATININE (test code = 2214) 0.61 MG/DL eGFR (2020 CKD-EPI) (test code = 50920) 113 ML/MIN/1.73 CALC BUN/CREAT (test code = 2235) 16 RATIO SODIUM (test code = 2231) 140 MEQ/L POTASSIUM (test code = 2228) 4.5 MEQ/L CHLORIDE (test code = 2215) 106 MEQ/L CARBON DIOXIDE (test code = 2206) 23 MEQ/L CALCIUM (test code = 2209) 9.2 MG/DL PROTEIN, TOTAL (test code = 2229) 7.2 G/DL ALBUMIN (test code = 2201) 4.3 G/DL CALC GLOBULIN (test code = 2240) 2.9 G/DL CALC A/G RATIO (test code = 2234) 1.5 RATIO BILIRUBIN, TOTAL (test code = 2207) 0.3 MG/DL ALKALINE PHOSPHATASE (test code = 2204) 77 U/L AST (test code = 2218) 14 U/L ALT (test code = 2219) 10 U/L Raymundo Todd ArechigaLIPID [id number] 00:00:00* Test Item Value Reference Range Interpretation Comme nts CHOLESTEROL (test code = 2210) 179 MG/DL TRIGLYCERIDES (test code = 2232) 102 MG/DL HDL CHOLESTEROL (test code = 2220) 35 MG/DL CALC LDL CHOL (test code = 2237) 124 MG/DL RISK RATIO LDL/HDL (test cod e = 2238) 3.54 RATIO Raymundo ArechigaHEMOGLOBIN [id number] 00:00:00* Test Item Value Reference Range Interpretation Comme nts HEMOGLOBIN A1c (test code = 08132) 6.0 % Raymundo ArechigaPAP TEST, THINPREP, [id number] 00:00:00* Test Item Value Reference Range Interpretation Comme nts SOURCE: (test code = 8001) Cervical/Endo cervi levi SLIDES: (test code = 8011) 1 LMP: (test code = 8021) 11/2022 SPECIMEN ADEQUACY: (test code = 22606) (NOTE) INTERPRETATION: (test code = 96014) ASCUS/EPITH. ABNORMALITY; SEE BELOW SUBSTATION SUPERVISOR: (test code = 8101) LUIS ARMANDO Hector(ASCP)IA C PATHOLOGIST INTERPRETATION BY: (test code = 8122) Patricia Nam DO LOCATION: (test code = 02751) (NOTE) CPT: (test code = 8140) (NOTE) Raymundo ArechigaHPV HIGH RISK WITH GENOTYPE, [id number] 00:00:00* Test Item Value Reference Range Interpretation Comme nts HPV HIGH RISK INTERP (test c ode = 63242) POSITIVE HPV 16 (test code = 06294) NEGATIVE HPV 18 (test code = 52902) POSITIVE HPV, HR, OTHER GENOTYPES (te st code = 56378) POSITIVE PDFE (test code = PDFReport) PDF Raymundo Brooks AustinVAGINAL PATHOGENS DNA [id number] 00:00:00* Test Item Value Reference Range Interpretation Comme nts SHAUNA SPECIES (test code = 25177) NEGATIVE G. VAGINALIS (test code = 85399) POSITIVE T. VAGINALIS (test code = 40052) NEGATIVE Raymundo ArechigaHEPATITIS PROFILE (A,B,C)2023-01-19 00:00:00* Test Item Value Reference Range Interpretation Comme nts HEPATITIS A TOTAL AB (test c ode = 2725) REACTIVE HEPATITIS B SURF AG (test co de = 5179) NON-REACTIVE HEP B CORE TOTAL AB (test co de = 1629) NON-REACTIVE HEPATITIS B SURFACE AB (test code = 2737) NON-REACTIVE HEPATITIS C ANTIBODY (test c ode = 6248) NON-REACTIVE INTERPRETATION HEPATITIS A: (test code = 2552) (NOTE) INTERPRETATION HEPATITIS B: (test code = 45685) (NOTE) INTERPRETATION HEPATITIS C: (test code = 27671) (NOTE) Raymundo [id number] 00:00:00* Test Item Value Reference Range Interpretation Comme nts RPR RESULT (test code = 3501) NON-REACTIVE RPR TITER (test code = 3500) NOT INDIC. TITER Raymundo ArechigaCT/NG, TMA, [id number] 00:00:00* Test Item Value Reference Range Interpretation Comme nts CHLAMYDIA, NAAT, URINE (test code = 96510) POSITIVE GONORRHEA, NAAT, URINE (test code = 25336) NEGATIVE Raymundo ArechigaHCG, [id number] 00:00:00* Test Item Value Reference Range Interpretation Comme nts HCG, QUANTITATIVE (test code = 2506) <5 MIU/ML Raymundo ArechigaHEPATITIS A IgM [REFLEX]2023-01-19 00:00:00* Test Item Value Reference Range Interpretation Comme nts HEPATITIS A IgM (test code = 2728) NON-REACTIVE Raymundo ArechigaHIV 1/2 4TH GEN, RFLX [id number] 00:00:00* Test Item Value Reference Range Interpretation Comme nts HIV 1/2 4TH GEN, RFLX CONF ( test code = 3514) NON-REACTIVE Raymundo ArechigaSARS-CoV-2 (COVID-19) by RT-PCR (HIGH RISK)2021-05-22 00:00:00* Test Item Value Reference Range Interpretation Comme nts SARS-CoV-2 INTERPRETATION (test code = 55128) NEGATIVE SOURCE (test code = 81818) NASOPHARYNGEAL Raymundo ArechigaGALV ONLY - VAGINAL PATHOGENS BY NUCLEIC ACID [id number] 00:05:39* Test Item Value Reference Range Interpretation Comme nts Trichomonas vaginalis (test code = 8379816248) Negative Negative Shauna species (test code = 6512247803) Negative Negative Shauna glabrata (test code = 13079-1) Negative Negative Bacterial Vaginosis (test code = 14061-9) Positive Negative A HERNÁN (test code = [...] the clinician. Lab Interpretation (test code = 87477-4) [facility] CHLAMYDIA AMPLIFIED [id number] 19:14:46* Test Item Value Reference Range Interpretation Comme nts C. trachomatis Nucleic Acid (test code = 91699-0) Negative Negative N. gonorrhoeae Nucleic Acid (test code = 94230-2) Negative Negative HERNÁN (test code = HERNÁN) [...] the clinician. Lab Interpretation (test code = 09745-6) Normal [facility] URINALYSIS W SPECIFIC [id number] 19:11:00* Test Item Value Reference Range Interpretation [...] clear Lab Interpretation (test cod e = 42531-7) Abnormal [facility] [id number] 19:11:00* Test Item Value Reference Range Interpretation Comme nts POCT PREG (test code = 1605) Negative On board controls acceptable with C Line (test code = 3574) Yes POCT PREG LOT # (test code = 3575) [id number] POCT PREG TEST DATE ( test code = 3576) 06/10/2022 Lab Interpretation (test cod e = 95345-9) [facility]-CoV-2 (COVID-19) by RT-PCR (HIGH RISK) 2020-03-28 00:00:00* Test Item Value Reference Range Interpretation Comme nts SARS-CoV-2 INTERPRETATION (test code = 25254) NEGATIVE SOURCE (test code = 81588) NASOPHARYNGEAL Raymundo Arechiga Notes Date/Time Note Provider Source 2024-04-03 00:00:00 [id number] T00:00:00+ + +| Plan Activity | Plan Date |+ =========+ +| Labs: COVID-19 | 2020-03-25 || Self quarantine until COVID-19 test is resulted | || Supportive treatment for symptoms | || Advised to monitor temperature | || Increase fluids | || ER precautions given | || Plan pending lab results | |+ ---------+ +| COVID-19 Results returning 3 days secondary to high volume of [place] Testing | 2021-05-21 || | || Priority results as designated by [facility] returning up to 3 days | || | || Check Patient Portal for negative results 7-10 days or await SMS messaging | || | || Positive Results will be called to patient to begin isolation, receive ER | || precautions and follow up Telehealth appointments. | || | || Positive results will be notified to the [facility] Department to determine | || contact tracing | || | || Continue self quarantine as indicated until results return, social distancing, | || hand hygiene and enforced mask wearing | || | || Proceed to your nearest emergency room for shortness of breath and | || decompensation | || | || Please use [employer] telephone number for any questions, | || | || Return to clinic as recommended or negative testing with remaining symptoms | |+ ---------+ +| Headache journal | 2021-09-13 || Tylenol for pain | || RTO for worsening symptoms | |+ ---------+ +| Encouraged weight loss through healthy diet and exercise. | 2023-01-18 |+ ---------+ +| Recommend daily exercise as part of a healthy lifestyle. | 2023-01-18 || 30 of moderate aerobic exercise 5 times a week. Increase your activity as | || tolerated. | |+ ---------+ +| Recommend diet high in fruits and vegetables, lean meats, low in fat and | 2023-01-18 || processed sugars. Monitor portion sizes. | |+ ---------+ +| Continue metronidazole and doxycycline as prescribed by ER. | 2023-01-18 || Avoid intercourse until completion of treatment | || Good hygiene | || Avoid douching | || Avoid scented feminine pads | || Avoid perfume soaps | || Wear cotton undergarments | || Return to clinic in 2 weeks if not resolved | || Patient verbalized understanding of treatment plan | |+ ---------+ +| GC/Chlamydia, RPR, Hepatitis | 2023-01-18 || results pending | |+ ---------+ +| HIV | 2023-01-18 || results pending | |+ ---------+ +| Intact tampon removed from vagina with ring forceps. | 2023-01-18 || Pt tolerated well. | |+ ---------+ +| doxycycline 100mg BID X 7 days | 2023-01-20 || Partner needs treatment. | || Avoid intercourse until all medication is finished and partner has been fully | || treated | || RTO in 3 months for YAW | || Notification sent to health department. | |+ ---------+ +| UPT negative | 2023-01-25 || Depo provera 150mg IM today. | || Medication indications and SE discussed. | || Barrier contraceptive recommended for 7 days after injection. | || RTO in 3 months for next depo injection. | |+ ---------+ +| RTC on annual exam | 2023-02-01 || Immunizations as age indicated | || Annual well adult with PCP as indicated | || STI labs declined | || Await diagnostic results | |+ ---------+ +| PAP with HPV | 2023-02-01 || results pending | |+ ---------+ +| Screening mammogram referral initiated | 2023-02-01 |+ ---------+ +| Encouraged weight loss through healthy diet and exercise. | 2023-02-15 |+ ---------+ +| RTC on annual exam | 2023-02-15 || RTO for Tdap | || Annual well adult with PCP as indicated | || STI labs done last month | || Await diagnostic results | |+ ---------+ +| lipid panel | 2023-02-15 || results pending | |+ ---------+ +| CMP, A1C | 2023-02-15 || results pending | |+ ---------+ +| See plan above | 2023-02-15 |+ ---------+ +| Biopsy sites well healed. | 2023-02-15 || Discussed results and POC with pt. | || Repeat pap in 1 year. | |+ ---------+ +| A1c, CMP, results pending | 2023-02-16 || Recommend lifestyle modifications. | || RTO pending lab results | |+ ---------+ +| Wet ha | 2023-02-22 || Results pending | |+ ---------+ +| HPV vaccine given | 2023-02-22 || RTO in 1 month for second dose | |+ ---------+ +| UA positive for leukocytes and blood. Send for UC, results pending. | 2023-06-13 || Empiric treatment with Bactrim DS BID x 3 days | || Medication indication, SEs and risks discussed. | || Increase fluid intake. | || Discussed wiping from front to back, voiding after intercourse, avoiding tub | || bathing, and avoiding thong underwear. | || OTC AZO, tylenol and ibuprofen for urinary pain as needed. | |+ ---------+ +| UPT negative | 2023-06-13 || Medications: Depo Provera 150mg IM x 1 now | || Medication usage schedule and side effects discussed with patient | || Patient verbalized understanding and agrees to treatment plan. | || RTC in 3 months for Depo Provera injection follow up | |+ ---------+ +| RTO for HPV vaccine dose #2 | 2023-06-13 |+ ---------+ +| UA unremarkable, sent UC | 2023-07-14 || Increase water intake | || Void every 2-3 hours during the day | || AZO, tylenol and ibuprofen for pain | |+ ---------+ +| UA positive for trace blood and protein, send | 2023-09-05 || Results pending | |+ ---------+ +| UA positive for blood. Send for UC, results pending. | 2023-10-27 || Empiric treatment with cephalexin 500mg QID x 7 days | || Medication indication, SEs and risks discussed. | || Increase fluid intake. | || Discussed wiping from front to back, voiding after intercourse, avoiding tub | || bathing, and avoiding thong underwear. | || OTC AZO, tylenol and ibuprofen for urinary pain as needed. | |+ ---------+ +| Lipid panel, results pending | 2023-11-29 || Low cholesterol diet and daily exercise recommended. | |+ ---------+ +| Recommend OTC menopause supplements to see if they will help with reduction of | 2023-11-29 || hot flashes. | || Continue healthy diet, daily exercise and weight loss. | || Discussed that next step would be OCPs if supplements do not help. | || Pt v/u and agrees with POC. | |+ ---------+ +| Encourage weight loss through healthy diet and exercise. | 2023-11-29 |+ ---------+ +[id number] of TreatmentLNCARE PLANTXTSFA|[id number] for patient [id number] Section NarrativeNARRATIVEFormatted C-CDA narrative textSFAStashu ToddKinjal [facility]2024-07-24T00:00:00 Raymundo Kinjal [facility]"
[2024-04-05 18:36] LABS: Specific Gravity 1.009 (1.005-1.030); Sqamous Epithelial <5 /HPF (None Seen); Urine Bacteria None Seen /HPF (<20); Urine Bilirubin NEGATIVE (Negative); Urine Blood 1+ (Negative); Urine Clarity Clear (Clear); Urine Color Colorless (Yellow); Urine Crystals Unidentified Few /HPF (None Seen); Urine Culture Reflex Order NOT NEEDED; Urine Glucose NEGATIVE (Negative); Urine Ketones NEGATIVE (Negative); Urine Microscopic Reflex YN ORDER UMIC; Urine Nitrite NEGATIVE (Negative); Urine Protein NEGATIVE (Negative); Urine Urobilinogen Normal (Normal); Urine WBC <5 /HPF (<5); Urine pH 6.5 (5.0-7.0)
[2024-04-05] MEDS ORDERED: Meropenem 1000 MG/VIAL IV ONE (18:39)
[2024-04-05] MEDS ORDERED: NA CHLORIDE 0.9% 100 ML ONE (18:39)
[2024-04-05 18:48] LABS: Absolute Basophils 0.1 K/uL (0-0.5); Absolute Eosinophils 0.1 K/uL (0-0.5); Absolute Lymphocytes (CBC) 2.9 K/uL (0.7-4.9); Absolute Monocytes 0.8 K/uL (0.1-1.3); Absolute Neutrophil 11.8 K/uL (1.8-8.0); Basophils % 0.5 % (0-1.3); Eosinophils % 0.9 % (0-4.4); Hematocrit 38.8 % (36.0-45.0); Hemoglobin 13.3 g/dL (12.0-15.0); Lymphocytes % 18.6 % (15.3-44.8); MCHC 34.3 g/dL (32.0-36.0); MCV 87.7 fL (80-100); Monocytes % 5.2 % (3.3-12.3); Neutrophils % 74.8 % (41.7-73.7); Nucleated Red Blood Cells % 0.2 % (0-0); Platelets 376 thou/uL (152-406); RBC Red Blood Cell Count 4.42 M/uL (3.86-4.86); Red Cell Distribution Width 14.2 % (12.1-15.2)
[2024-04-05 19:18] LABS: Albumin 3.6 g/dL (3.4-5.0); Albumin/Globulin Ratio 0.9 (1.1-1.8); Anion Gap 10.3 mEq/L (5.0-15.0); Bilirubin Total 0.2 mg/dL (0.2-1.0); Globulin 4.1 g/dL (2.3-3.5); Potassium 3.3 mEq/L (3.5-5.1); Protein, Total 7.7 g/dL (6.4-8.2)
--- NOTE | 2024-04-05 19:24 | EDPHYS ---
Physician Documentation [facility] Name: Aye Shafer Age: 43 yrs Sex: Female : 1980 Arrival Date: 04/05/2024 Time: 17:35 Bed 13 Private MD: ED Physician Tito Martinez HPI: 04/05 17:48 This 43 yrs old Female presents to ER via Unassigned with complaints of ec2 Abnormal Lab Results. 17:48 Patient arrives today for evaluation of dysuria. Patient was recently seen, had urine ec2 cultures that grew Morganella, sensitivities indicate intermediate sensitivity to levofloxacin, sensitive to meropenem. Patient reports persistent symptoms.. Historical: - Allergies: 18:05 NKA; tl4 - Home Meds: 18:05 None [Active]; tl4 - PMHx: 18:05 None; tl4 - PSHx: 18:05 None; tl4 - Immunization history:: Adult Immunizations unknown. - Infectious Disease History:: Denies. - Social history:: Smoking status: Patient denies any tobacco usage or history of. ROS: 17:48 Constitutional: as per hpi ec2 Exam: 17:48 Constitutional: GEN: NAD Head: atraumatic Eyes: EOMI Ears: External ears are ec2 normal. CV: regular rate LUNGS: no respiratory distress ABD: non-distended SKIN: no evidence of rashes MSK: no evidence of trauma NEURO: moves all extremities equally Vital Signs: 18:00 BP 128 / 61; Pulse 77; Resp 16; Temp 97.9(TE); Pulse Ox 100% on R/A; Weight 75.3 kg; tl4 Height 5 ft. 2 in. ; Pain 6/10; 19:23 BP 119 / 65; Pulse 72; Resp 16; Pulse Ox 100% on R/A; pc2 18:00 Body Mass Index 30.36 (75.30 kg, 157.48 cm) tl4 18:00 Pain Scale: Adult tl4 MDM: 17:47 Patient medically screened. ec2 17:48 Data reviewed: vital signs. ED course: Arrives today for urinary complaints. ec2 Examination remarkable for well-appearing nontoxic vigorous otherwise in no acute distress. External records show sensitivity to meropenem on urinalysis. Will give the patient meropenem, repeat lab work and admit for urinary tract infection, outpatient failure, meropenem for IV antibiotics.. 19:22 ED course: CBC shows leukocytosis. Metabolic profile shows slight hypokalemia with ec2 potassium of 3.3. Urine shows RBCs. Will admit the patient for IV antibiotics. Discussed case with hospitalist, pending admission. . 04/05 17:48 Order name: CBC with Diff; Complete Time: 19:22 ec2 04/05 17:48 Order name: CMP; Complete Time: 19:22 ec2 04/05 17:48 Order name: Urinalysis w/ reflexes; Complete Time: 19:22 ec2 04/05 17:48 Order name: Blood Culture Adult (2) ec2 04/05 20:10 Order name: Urinalysis w/ reflexes [facility] 04/05 20:10 Order name: CBC with Automated Diff [facility] 04/05 20:10 Order name: CBC with Automated Diff [facility] 04/05 20:10 Order name: Comprehensive Metabolic Panel [facility] 04/05 20:10 Order name: Comprehensive Metabolic Panel [facility] 04/05 17:48 Order name: IV Saline Lock; Complete Time: 18:36 ec2 04/05 17:48 Order name: Labs collected and sent; Complete Time: 18:36 ec2 Administered Medications: 18:51 Drug: Meropenem IV 1 grams IV at calculated rate once; (mix in NS 100 mL) {Note: No ss allergies.} Route: IV; Rate: calculated rate; Site: right antecubital; 19:26 Follow up: Response: No adverse reaction; IV Status: Completed infusion; IV Intake: pc2 100ml Disposition Summary: 04/05/24 19:23 Hospitalization Ordered Notes: Hospitalization Status: Inpatient Admission ec2 Provider: Quincy Diallo ec2 Location: Telemetry/[facility]Sur (Inpatient) ec2 Condition: Stable ec2 Problem: an ongoing problem ec2 Symptoms: are unchanged ec2 Bed/Room Type: Standard ec2 Room Assignment: 228(04/05/24 20:37) sa1 Diagnosis - Abnormal Urine Culture ec2 Forms: - Medication Reconciliation Form ec2 - SBAR form ec2 - Leadership Thank You Letter ec2 Signatures: Dispatcher [facility] Rhoda Raza RN RN ss Corral, Edwin, MD MD ec2 Scott Cruz RN RN tl4 Sultan Trevon sa1 Latricia Matute RN pc2 Corrections: (The following items were deleted from the chart) 18:06 18:05 Allergies: Aspirin; tl4 tl4 20:37 19:23 ec2 1
--- NOTE | 2024-04-05 19:24 | ER ---
Nurse's Notes [facility] Name: Aye Shafer Age: 43 yrs Sex: Female : 1980 Arrival Date: 04/05/2024 Time: 17:35 Bed 13 Private MD: Diagnosis: Abnormal Urine Culture Presentation: 04/05 18:00 Chief complaint: Patient states: Pt states she was treated in this ED for bacterial tl4 vaginosis with flagyl and doxycycline. Pt was told today she has bacteria in urine that requires IV antibiotics. Coronavirus screen: At this time, the client does not indicate any symptoms associated with coronavirus-19. Ebola Screen: No symptoms or risks identified at this time. Initial Sepsis Screen: Does the patient meet any 2 criteria? No. Patient's initial sepsis screen is negative. Does the patient have a suspected source of infection? No. Patient's initial sepsis screen is negative. Risk Assessment: Do you want to hurt yourself or someone else? Patient reports no desire to harm self or others. Onset of symptoms was March 31, 2024. 18:00 Method Of Arrival: Ambulatory tl4 18:00 Acuity: VIRGEN 3 tl4 Triage Assessment: 18:07 General: Appears distressed, Behavior is crying. Pain: Complains of pain in abdomen. tl4 EENT: No signs and/or symptoms were reported regarding the EENT system. Neuro: Level of Consciousness is awake, alert, obeys commands, Oriented to person, place, time, situation. Cardiovascular: Capillary refill < 3 seconds Patient's skin is warm and dry. Respiratory: Airway is patent Respiratory effort is even, unlabored, Respiratory pattern is regular, symmetrical. GI: No signs and/or symptoms were reported involving the gastrointestinal system. : No signs and/or symptoms were reported regarding the genitourinary system. Derm: No signs and/or symptoms reported regarding the dermatologic system. Musculoskeletal: No signs and/or symptoms reported regarding the musculoskeletal system. Historical: - Allergies: 18:05 NKA; tl4 - Home Meds: 18:05 None [Active]; tl4 - PMHx: 18:05 None; tl4 - PSHx: 18:05 None; tl4 - Immunization history:: Adult Immunizations unknown. - Infectious Disease History:: Denies. - Social history:: Smoking status: Patient denies any tobacco usage or history of. Screenin:23 [facility] ED Fall Risk Assessment (Adult) History of falling in the last 3 months, pc2 including since admission No falls in past 3 months (0 pts) Confusion or Disorientation No (0 pts) Intoxicated or Sedated No (0 pts) Impaired Gait No (0 pts) Mobility Assist Device Used No (0 pt) Altered Elimination No (0 pt) Score/Fall Risk Level 0 - 2 = Low Risk Oriented to surroundings, Maintained a safe environment. Abuse screen: Denies threats or abuse. Denies injuries from another. Nutritional screening: No deficits noted. Tuberculosis screening: No symptoms or risk factors identified. Assessment: 19:24 Reassessment: Patient and/or family updated on plan of care and expected duration. Pain pc2 level reassessed. Patient is alert, oriented x 3, equal unlabored respirations, skin warm/dry/pink. General: Appears in no apparent distress. comfortable, Behavior is calm, cooperative. Neuro: Level of Consciousness is awake, alert, obeys commands, Oriented to person, place, time, situation, Appropriate for age. Cardiovascular: Capillary refill < 3 seconds Patient's skin is warm and dry. Respiratory: Airway is patent Respiratory effort is even, unlabored, Respiratory pattern is regular, symmetrical. GI: Abdomen is non-distended. : Reports urinary symptoms on last visit. EENT: No signs and/or symptoms were reported regarding the EENT system. Derm: No signs and/or symptoms reported regarding the dermatologic system. Musculoskeletal: No signs and/or symptoms reported regarding the musculoskeletal system. 21:58 Reassessment: Patient appears in no apparent distress at this time. Patient and/or pc2 family updated on plan of care and expected duration. Pain level reassessed. Patient is alert, oriented x 3, equal unlabored respirations, skin warm/dry/pink. Vital Signs: 18:00 BP 128 / 61; Pulse 77; Resp 16; Temp 97.9(TE); Pulse Ox 100% on R/A; Weight 75.3 kg; tl4 Height 5 ft. 2 in. ; Pain 6/10; 19:23 BP 119 / 65; Pulse 72; Resp 16; Pulse Ox 100% on R/A; pc2 18:00 Body Mass Index 30.36 (75.30 kg, 157.48 cm) tl4 18:00 Pain Scale: Adult tl4 ED Course: 17:45 Patient arrived in ED. ra3 17:47 Tito Martinez MD is Attending Physician. ec2 18:05 Triage completed. tl4 18:08 Arm band placed on left wrist. tl4 18:10 Rhoda Kumar, CASPER is Primary Nurse. ss 18:15 Urinalysis w/ reflexes Sent. ss 18:36 Inserted saline lock: 20 gauge antecubital area, using aseptic technique. Blood ss collected. 19:23 Quincy Diallo MD is Hospitalizing Provider. ec2 19:24 Patient has correct armband on for positive identification. Bed in low position. Call pc2 light in reach. Side rails up X 1. Provided Education on: POC and time frame. 19:24 No provider procedures requiring assistance completed. pc2 20:18 Assisted to bathroom. ty Administered Medications: 18:51 Drug: Meropenem IV 1 grams IV at calculated rate once; (mix in NS 100 mL) {Note: No ss allergies.} Route: IV; Rate: calculated rate; Site: right antecubital; 19:26 Follow up: Response: No adverse reaction; IV Status: Completed infusion; IV Intake: pc2 100ml Medication: 19:25 VIS not applicable for this client. pc2 Intake: 19:26 IV: 100ml; Total: 100ml. pc2 Outcome: 19:23 Decision to Hospitalize by Provider. ec2 22:02 Patient left the ED. pc2 Signatures: Rhoda Kumar, CASPER SHIRLEY ss Tito Martinez MD MD ec2 Scott Cruz RN RN 4 Julia Wolff ra3 Samson Christie Pam, RN RN pc2 Corrections: (The following items were deleted from the chart) 18:06 18:05 Allergies: Aspirin; tl4 tl4
[2024-04-05] MEDS ORDERED: ONDANSETRON 4 MG/2 ML VIAL IV PRN (20:06)
[2024-04-05] MEDS: Meropenem 500 MG in NA CHLORIDE 0.9% 100 ML IV SCH (20:09)
--- NOTE | 2024-04-05 20:09 | P.HP ---
Certification for Inpatient Patient admitted to: Inpatient With expected LOS: >2 Midnights Practitioner: I am a practitioner with admitting privileges, knowledge of patient current condition, hospital course, and medical plan of care. Services: Services provided to patient in accordance with Admission requirements found in Title 42 Section 412.3 of the Code of Federal Regulations Patient History Date of Service: 04/06/24 Reason for admission: UTI History of Present Illness: 43 yrs old Female with no significant past medical history who was called back to the ER because of a UTI with resistant organism. Patient states that she was having dysuria and frequency of micturition and was brought to ER on Monday and was treated with p.o. antibiotics and was sent home. Patient was called back to ER because of the culture of urine which was came back positive for UTI with Morganella Morganelli which was resistant to p.o. antibiotics and was admitted for IV antibiotics with meropenem. Patient complains of dysuria continuing. Complains of frequency of micturition as well. Denies any fever. No nausea vomiting or diarrhea. Patient has a history of tampon which was placed a week ago and was taken out by her PCP this week Allergies Unable to Assess Allergy (Unverified 04/05/24 20:32) Home medications list reviewed: Yes Home Medications: Doxycycline Hyclate 1 tab PO Q12HR 04/05/24 metroNIDAZOLE [Metronidazole] 1 tab PO Q12HR 04/05/24 - Past Medical/Surgical History Past Medical History: Reviewed- Non-Contributory Past Surgical History: Reviewed- Non-Contributory - Family History Family History: Reviewed- Non-Contributory - Social History Smoking Status: Never smoker Review of Systems 10-point ROS is otherwise unremarkable Physical Examination - Vital Signs Temperature: 97.9 F Blood Pressure: 126/62 Pulse: 78 Respirations: 18 Pulse Ox (%): 94 - Physical Exam General: Alert, In no apparent distress, Oriented x3 HEENT: Atraumatic, Normocephalic Neck: Supple, JVD not distended Respiratory: Clear to auscultation bilaterally, Normal air movement Cardiovascular: Regular rate/rhythm, Normal S1 S2 Capillary refill: <2 Seconds Gastrointestinal: Soft and benign, Non-distended, W/out hepatosplenomegaly Musculoskeletal: No clubbing, No swelling Integumentary: No rashes, No tenderness/swelling Neurological: Normal speech, Normal strength at 5/5 x4 extr, Cranial nerves 3-12 intact, Normal reflexes 2+ Lymphatics: No axilla or inguinal lymphadenopathy - Studies Laboratory Data (last 24 hrs) 04/05/24 04/05/24 18:30 18:30 WBC 15.70 H Hgb 13.3 Hct 38.8 Plt Count 376 Sodium 136 Potassium 3.3 L BUN 11 Creatinine 0.67 Glucose 126 H Total Bilirubin 0.2 AST 24 ALT 31 Alkaline Phosphatase 98 Assessment and Plan - Problems (Diagnosis) (1) UTI (urinary tract infection) Current Visit: Yes Status: Acute Plan: UTI Culture showing Morganella morganii Sensitive to meropenem Resistant to p.o. antibiotics Will start on meropenem Leukocytosis present IV hydration Monitor closely Hypokalemia Electrolytes monitor and replace accordingly GI/DVT prophylaxis Advanced directive full code Discharge Plan: Home Plan to discharge in: 48 Hours - Advance Directives Does patient have a Living Will: No Does patient have a Durable POA for Healthcare: No - Code Status/Comfort Care Code Status: Full Code Time Spent Managing Pts Care (In Minutes): 48
[2024-04-05 22:16] VITALS: BMI 29.4
[2024-04-05 22:34] VITALS: O2SAT 100
[2024-04-05] MEDS: NA CHLORIDE 0.9% 1,000 ML IV SCH (23:19)
[2024-04-06 06:17] LABS: Absolute Eosinophils 0.1 K/uL (0-0.5); Absolute Lymphocytes (CBC) 1.4 K/uL (0.7-4.9); Absolute Monocytes 0.8 K/uL (0.1-1.3); Absolute Neutrophil 9.3 K/uL (1.8-8.0); Basophils % 0.3 % (0-1.3); Eosinophils % 1.2 % (0-4.4); Hematocrit 36.7 % (36.0-45.0); Hemoglobin 12.4 g/dL (12.0-15.0); Lymphocytes % 11.8 % (15.3-44.8); MCHC 33.8 g/dL (32.0-36.0); MCV 88.8 fL (80-100); Monocytes % 6.9 % (3.3-12.3); Neutrophils % 79.8 % (41.7-73.7); Nucleated Red Blood Cells % 0.1 % (0-0); Platelets 330 thou/uL (152-406); RBC Red Blood Cell Count 4.14 M/uL (3.86-4.86); Red Cell Distribution Width 14.2 % (12.1-15.2)
[2024-04-06 06:47] LABS: Albumin 2.9 g/dL (3.4-5.0); Albumin/Globulin Ratio 0.9 (1.1-1.8); Anion Gap 9.1 mEq/L (5.0-15.0); Bilirubin Total 0.3 mg/dL (0.2-1.0); Globulin 3.3 g/dL (2.3-3.5); Potassium 4.1 mEq/L (3.5-5.1); Protein, Total 6.2 g/dL (6.4-8.2)
[2024-04-06] MEDS: ENOXAPARIN 40 MG/0.4 ML SQ SCH (08:17)
--- NOTE | 2024-04-06 13:48 | P.PN ---
Subjective Date of Service: 04/06/24 Chief Complaint: UTI Patient states dysuria is improving. No recorded fever. She is tolerating diet and hoping to be discharged as soon as possible. Physical Examination - Vital Signs Temperature: 98.5 F Blood Pressure: 133/70 Pulse: 75 Respirations: 16 Pulse Ox (%): 100 - Studies Laboratory Data (last 24 hrs) 04/05/24 04/05/24 18:30 18:30 WBC 15.70 H Hgb 13.3 Hct 38.8 Plt Count 376 Sodium 136 Potassium 3.3 L BUN 11 Creatinine 0.67 Glucose 126 H Total Bilirubin 0.2 AST 24 ALT 31 Alkaline Phosphatase 98 Assessment And Plan - Plan Physical examination General: Alert and oriented x3, NAD, HEENT: Conjunctiva not pale, anicteric sclera Neck: Supple. Heart: Heart sounds 1 and 2 normal, regular rhythm, normal rate, no pedal edema Lungs: Clear to auscultation bilaterally, adequate breath sounds bilaterally, no rhonchi or crackles. Abdomen: Soft, nondistended, nontender, normal bowel sounds. Extremities: No tenderness, no deformity Skin: Normal skin turgor, no rash, no nodules or ulcers. Neuro: No focal motor deficit. Normal speech. Psychiatry: Normal mood, no agitation. Assessment and plan Morganella morganii UTI Sensitive to meropenem Resistant to p.o. antibiotics Continue IV meropenem. Plan is to discharge with IV Invanz Patient completed 7 days of antibiotic treatment Leukocytosis is improving. Diet as tolerated Hypokalemia Hypokalemia corrected. Monitor BMP DVT prophylaxis: Lovenox Advanced directive full code
[2024-04-06] MEDS: ACETAMINOPHEN 325 MG TABLET PO PRN (17:27)
--- NOTE | 2024-04-06 19:22 | RAD REPORT ---
EXAM DESCRIPTION: CT - Head Brain Wo Cont - 04/06/2024 6:38 pm CLINICAL HISTORY: Blurred vision COMPARISON: No comparisons TECHNIQUE: Noncontrast head CT images were obtained without IV contrast. Multiplanar reformats were generated and reviewed. All CT scans are performed using dose optimization technique as appropriate and may include automated exposure control or mA/KV adjustment according to patient size. FINDINGS: No intracranial hemorrhage, mass, or edema. Midline structures are unremarkable. Normal ventricular caliber for age. Roman-white matter differentiation is preserved, without evidence of acute infarct. No abnormal extra- axial fluid collections. Mastoid air cells and visualized portions of the paranasal sinuses are clear. No acute bony findings. IMPRESSION: No evidence of an acute intracranial process.
[2024-04-07 00:05] LABS: SARS-CoV-2 Antigen CONTROL BLUE LINE VIS/BG OK; SARS-CoV-2 Antigen Rapid Res Negative (Negative)
--- NOTE | 2024-04-07 13:53 | P.PN ---
Subjective Date of Service: 04/07/24 Chief Complaint: UTI Patient with headache with associated transient blurry vision last night. Patient reports the headache is much better today and the blurry vision has resolved. Symptoms associated with nasal congestion, denies any sore throat. She reports subjective fever last night but no fever recorded. Physical Examination - Vital Signs Temperature: 98.3 F Blood Pressure: 112/77 Pulse: 94 Respirations: 16 Pulse Ox (%): 99 Assessment And Plan - Plan Physical examination General: Alert and oriented x3, NAD, HEENT: Conjunctiva not pale, anicteric sclera Neck: Supple. Heart: Heart sounds 1 and 2 normal, regular rhythm, normal rate, no pedal edema Lungs: Clear to auscultation bilaterally, adequate breath sounds bilaterally, no rhonchi or crackles. Abdomen: Soft, nondistended, nontender, normal bowel sounds. Extremities: No tenderness, no deformity Skin: Normal skin turgor, no rash, no nodules or ulcers. Neuro: No focal motor deficit. Normal speech. Psychiatry: Normal mood, no agitation. Assessment and plan Morganella morganii UTI Sensitive to meropenem Resistant to p.o. antibiotics Continue IV meropenem. Plan is to be discharge with IV Invanz Patient to complete 7 days of antibiotic treatment Leukocytosis is improving. Diet as tolerated. Service consulted for arrangement for outpatient IV Invanz. Headache Upper respiratory infection Supportive measures Analgesics as needed Hypokalemia Hypokalemia corrected. Monitor BMP DVT prophylaxis: Lovenox Advanced directive full code
[2024-04-07] MEDS: Meropenem 1,000 MG in NA CHLORIDE 0.9% 100 ML IV SCH (17:14)
[2024-04-08 06:32] LABS: Hematocrit 38.7 % (36.0-45.0); Hemoglobin 13.1 g/dL (12.0-15.0); MCHC 33.9 g/dL (32.0-36.0); MCV 88.5 fL (80-100); MPV 8.1 fL (7.6-11.3); Neutrophils % 65.8 % (41.7-73.7); Platelets 316 thou/uL (152-406); RBC Red Blood Cell Count 4.38 M/uL (3.86-4.86); Red Cell Distribution Width 14.4 % (12.1-15.2)
[2024-04-08 06:33] LABS: Absolute Eosinophils 0.1 K/uL (0-0.5); Absolute Lymphocytes (CBC) 1.5 K/uL (0.7-4.9); Absolute Monocytes 1.1 K/uL (0.1-1.3); Absolute Neutrophil 5.2 K/uL (1.8-8.0); Basophils % 0.4 % (0-1.3); Eosinophils % 1.8 % (0-4.4); Lymphocytes % 18.6 % (15.3-44.8); Monocytes % 13.4 % (3.3-12.3)
[2024-04-08 06:55] LABS: Anion Gap 8.1 mEq/L (5.0-15.0); Potassium 4.1 mEq/L (3.5-5.1)
[2024-04-08] MEDS ORDERED: ERTAPENEM SODIUM 1 GM VIAL IVPB ONE (13:47)
[2024-04-08] MEDS: ERTAPENEM NA 1 GM in NA CHLORIDE 0.9% 100 ML IVPB SCH (14:49)
--- NOTE | 2024-04-08 17:02 | P.PN ---
Subjective Date of Service: 04/08/24 Chief Complaint: UTI Patient reports intermittent cough, productive of greenish sputum. She also reports sore throat. No fever reported. Physical Examination - Vital Signs Temperature: 99.1 F Blood Pressure: 114/64 Pulse: 83 Respirations: 16 Pulse Ox (%): 100 Assessment And Plan - Plan Physical examination General: Alert and oriented x3, NAD, HEENT: Conjunctiva not pale, anicteric sclera Neck: Supple. Heart: Heart sounds 1 and 2 normal, regular rhythm, normal rate, no pedal edema Lungs: Clear to auscultation bilaterally, adequate breath sounds bilaterally, no rhonchi or crackles. Abdomen: Soft, nondistended, nontender, normal bowel sounds. Extremities: No tenderness, no deformity Skin: Normal skin turgor, no rash, no nodules or ulcers. Neuro: No focal motor deficit. Normal speech. Psychiatry: Normal mood, no agitation. Assessment and plan Morganella morganii UTI Sensitive to meropenem Resistant to p.o. antibiotics Continue IV meropenem. Plan is to be discharge with IV Invanz Patient to complete 7 days of antibiotic treatment. Antibiotics day 3 today. Leukocytosis resolved. Diet as tolerated. Service consulted for arrangement for outpatient IV Invanz pending MD/PCP will follow antibiotic administration as outpatient. Headache Upper respiratory infection Supportive measures Analgesics as needed Hypokalemia Hypokalemia corrected. Monitor BMP DVT prophylaxis: Lovenox Advanced directive full code
--- NOTE | 2024-04-09 11:42 | P.PN ---
Date of Service: 04/09/24 Subjective: ROS: 10 point ROS as noted above, otherwise negative Physical Exam: GEN: Alert, oriented, NAD HEENT: Normal conjunctiva, sclera anicteric CV: Regular rate and rhythm, no edema Pulm: Nonlabored respirations on room air, clear bilaterally ABD: Soft, nontender, nondistended Integumentary: No rashes Neuro: Normal speech, normal affect vitals reviewed Problem List: UTI POA, Morganella morganii Headache Upper respiratory infection Hypokalemia, improved UTI POA, Morganella morganii urine cx from ER visit 03/31 noted to grow MDR Morganella morganii - only sensitive to merrem / tobramycin IV merrem transitioned to IV invanz (04/08) Plan is to be discharge with 1 week of IV invanz (end date: 04/12/24) currently day 4 of 7. afebrile, leukocytosis resolved Diet as tolerated. Service consulted for arrangement for outpatient IV Invanz pending MD/PCP will follow antibiotic administration as outpatient. Headache Upper respiratory infection Supportive measures pain control Hypokalemia, improved Hypokalemia corrected. daily labs VTE: Lovenox Code: Full Dispo: Home Pending outpatient IV abx setup Time Spent Managing Pts Care (In Minutes): 40
--- NOTE | 2024-04-09 12:57 | P.DS ---
Admission Date: 04/05/24 Discharge Date: 04/09/24 Disposition: DC HOME/HOME HEALTH CARE Discharge Condition: GOOD Reason for Admission: UTI Brief History of Present Illness: 43yo F, PMH: no significant PMH Patient was called back to the ER because of a UTI with resistant organism. Patient states that she was having dysuria and frequency of micturition and was brought to ER on Monday and was treated with p.o. antibiotics and was sent home. Patient was called back to ER because of the culture of urine which was came back positive for UTI with Morganella Morganelli which was resistant to p.o. antibiotics and was admitted for IV antibiotics with meropenem. Patient complains of dysuria continuing. Complains of frequency of micturition as well. Denies any fever. No nausea vomiting or diarrhea. Hospital Course: Problem List: UTI POA, Morganella morganii Headache Upper respiratory infection Hypokalemia, improved Physician discharge instructions: Patient presented with dysuria, urinary frequency and was found to have a multi- drug resistant UTI. She was recently seen in ED a few days ago and came back per recommendation after her urine culture from 03/31 was noted to grow MDR Morganella Morganii, only sensitive to Merrem and tobramycin. She was started on IV merrem while hospitalized and had improvement of her symptoms. She received 1st dose of invanz on 04/08, and tolerated well. Patient is to complete 4 more days of IV Invanz on discharge for total of 1 week antibiotic treatment. Patient was feeling better, Dysuria improving, afebrile > 48 hours, leukocytosis resolved, and was deemed stable for discharge. Medications: Invanz 1gm; end-date 04/12/24 Follow up: PCP 3-5 days Please call to schedule / confirm appointments Physical Exam: GEN: Alert, oriented, NAD HEENT: Normal conjunctiva, sclera anicteric CV: Regular rate and rhythm, no edema Pulm: Nonlabored respirations on room air, clear bilaterally ABD: Soft, nontender, nondistended Integumentary: No rashes Neuro: Normal speech, normal affect Vital Signs/Physical Exam: Temp Pulse Resp BP Pulse Ox 96.9 F 99 H 16 110/72 100 04/09/24 08:00 04/09/24 08:00 04/09/24 08:00 04/09/24 08:00 04/09/24 08:00 Laboratory Data at Discharge: WBC 7.90 thou/uL (4.3-10.9) 04/08/24 06:00 Hgb 13.1 g/dL (12.0-15.0) 04/08/24 06:00 Hct 38.7 % (36.0-45.0) 04/08/24 06:00 Plt Count 316 thou/uL (152-406) 04/08/24 06:00 Sodium 137 mEq/L (136-145) 04/08/24 06:00 Potassium 4.1 mEq/L (3.5-5.1) 04/08/24 06:00 BUN 11 mg/dL (7-18) 04/08/24 06:00 Creatinine 0.58 mg/dL (0.55-1.02) 04/08/24 06:00 Glucose 120 mg/dL (74-106) H 04/08/24 06:00 Total Bilirubin 0.3 mg/dL (0.2-1.0) 04/06/24 05:43 AST 18 U/L (15-37) 04/06/24 05:43 ALT 25 U/L (13-56) 04/06/24 05:43 Alkaline Phosphatase 72 U/L (45-117) D 04/06/24 05:43 Physician Discharge Instructions: Physician discharge instructions: Patient presented with dysuria, urinary frequency and was found to have a multi- drug resistant UTI. She was recently seen in ED a few days ago and came back per recommendation after her urine culture from 03/31 was noted to grow MDR Morganella Morganii, only sensitive to Merrem and tobramycin. She was started on IV merrem while hospitalized and had improvement of her symptoms. She received 1st dose of invanz on 04/08, and tolerated well. Patient is to complete 4 more days of IV Invanz on discharge for total of 1 week antibiotic treatment. Patient was feeling better, Dysuria improving, afebrile > 48 hours, leukocytosis resolved, and was deemed stable for discharge. Medications: Invanz 1gm; end-date 04/12/24 Follow up: PCP 3-5 days Please call to schedule / confirm appointments Followup: OOT,OOT [Primary Care Provider] - Time spent managing pt's care (in minutes): 45
[2024-04-09 13:02] VITALS: BP 108/68; TEMP 97.6
== END 2024-04-09 13:45 | disposition home health service (06) | DRG 690 ==
LOC: ER 17:35 → ERHOLD 20:06 → 2ND 21:38
PROVIDERS: ADMIT Family Medicine; ATTEND Hospitalist
PROC: 02HV33Z Insertion of Infusion Device into Superior Vena Cava, Percutaneous Approach (ICD-10-PCS; principal; 2024-04-05)
DX: N39.0 Urinary tract infection, site not specified (principal); Z16.20 Resistance to unspecified antibiotic; E87.6 Hypokalemia; J06.9 Acute upper respiratory infection, unspecified; B96.89 Other specified bacterial agents as the cause of diseases classified elsewhere; Z11.52 Encounter for screening for COVID-19
CPT/HCPCS: 36415; 70450; 80048; 80053; 81001; 85025; 87040; 87070; 87081; 87086; 87088; 87811; 96365; 99284; J1335; J1650; J2185; J7030